=== PATIENT | female | born 1990 | race Caucasian/White ===

== ENCOUNTER 2022-09-28 19:44 | Emergency (ER) | payer OTHER, SELFPAY ==
[2022-09-28 19:54] VITALS: BP 136/74; PULSE 98; RESP 16; TEMP 36.8; O2SAT 100
--- NOTE | 2022-09-28 20:24 | ED.GENADULT ---
HPI - General Adult General Chief complaint: Skin/Abscess/Foreign Body Stated complaint: Boil on rear end Time Seen by Provider: 09/28/22 20:18 Source: patient, RN notes reviewed and old records reviewed Mode of arrival: ambulatory Limitations: no limitations History of Present Illness HPI narrative: A 32-year-old female who presents to [facility] with complaints of abscess to her right buttock for the past 5 days. Patient reports that she has applied prid salve, warm compresses and warm baths. Patient states that she has had a small amount of purulent drainage from area,reports that area is pain to her right buttock. Ptient has 11.5cm by 14 cm area of redness to right buttock, one small pustule noted with tissue firm, no fluctuant tissue noted. Right buttock tissue is warm and increasingly painful to palpation. MD complaint: Abscess Onset (ago): day(s) (5) Location: buttocks (Right) Severity scale (1-10): 6 Treatments prior to arrival: other (warm compresses and baths and Prid salve) Related Data Home Medications Medication Instructions Recorded Confirmed paroxetine HCl 40 mg tablet 40 mg PO DAILY 09/28/22 09/28/22 Allergies Allergy/AdvReac Type Severity Reaction Status Date / Time latex Allergy Anaphylaxis Verified 09/28/22 19:58 Review of Systems Review of Systems: CONSTITUTIONAL: Denies fever, chills, or sweats. CARDIOVASCULAR: Denies chest pain, palpitations, or edema. RESPIRATORY: Denies cough or dyspnea. GASTROINTESTINAL: Denies abdominal pain, nausea, vomiting SKIN: Reports redness and swelling. Some purulent drainage reported by patient, one noted pustule with no drainage, no fluctuance of tissue, tissue is firm and warm MUSCULOSKELETAL: Denies myalgia. NEUROLOGIC: Denies headache, numbness All systems reviewed & are unremarkable except as noted in HPI and below PMFSH Past Medical History Medical History (Updated 09/30/22 @ 22:51 by Karely Lopez NP) Skin abscess Social History Social History (Updated 09/30/22 @ 22:47 by Karely Lopez NP) Smoking status: Light tobacco smoker Tobacco type: cigarettes Alcohol intake: unknown Substance use: unknown Gender identity (if verbalized by the patient): Female Comments At time of signature, agree with nursing past medical, surgical, social and family history. There is no relevant family history pertinent to the presenting complaint Exam Narrative: GENERAL: Well-appearing, well-nourished, and in no acute distress. HEAD: Normocephalic, atraumatic. EYES: PERRLA and EOMI. ENT: Nares clear, no rhinorrhea or epistaxis. Mucous membranes moist. NECK: Supple.no lymphadenopathy CHEST: Clear to auscultation. No respiratory distress.SAO2 100% on room air HEART: Regular rate and rhythm. No murmur heard. Normal peripheral pulses. ABDOMEN: Soft, nontender, nondistended, normal active bowel sounds. EXTREMITIES: Normal range of motion. No edema. SKIN: Warm, dry. Erythema, induration, tenderness, warmth with sharp margins noted.one small pustule with no present drainage noted. redness measures 11.5cm X14Cm with tissue firm with no fluctuance noted.Aterea is painful increases with palpation no fevers reported. NEURO: No focal deficits. Alert and oriented x3. Course Course Emergency Course: Patient is aware of diagnosis, understands and agrees to treatment plan. Anticipatory guidance given. Patient agrees to follow-up as directed and is aware of reasons to seek care at the emergency department. Portions of this record may have been created with voice recognition software Level of Care: Express Care Visit Vital Signs Vital signs: Vital Signs Temperature 36.8 C 09/28/22 19:54 Pulse Rate 98 09/28/22 19:54 Respiratory Rate 16 09/28/22 19:54 Blood Pressure 136/74 09/28/22 19:54 Pulse Oximetry 100 09/28/22 19:54 Oxygen Delivery Room Air 09/28/22 19:54 Temperature 36.8 C 09/28/22 19:54 Pulse Rate 98
== END 2022-09-28 20:39 | disposition home or self-care (01) ==
PROVIDERS: Emergency Provider Registered Nurse; PCP Orthopaedic Surgery Orthopaedic Trauma
DX: L02.31 Cutaneous abscess of buttock (principal); F17.210 Nicotine dependence, cigarettes, uncomplicated
CPT/HCPCS: 99213; G0463